=== PATIENT | female | born 1970 | race Caucasian/White ===

== ENCOUNTER 2018-03-20 17:31 | Emergency (ER) | payer OTHER ==
[~2018-03-20] VITALS: Ht 157.5 cm; Wt 101.2 kg
[2018-03-20 17:37] VITALS: BP_SYST 154
[2018-03-20] MEDS ORDERED: PROCHLORPERAZINE EDISYLATE 10 MG/2 ML VIAL IM ONE (18:15)
[2018-03-20] MEDS ORDERED: KETOROLAC TROMETHAMINE 60 MG/2 ML VIAL IM ONE (18:15)
[2018-03-20 18:19] LABS: BASOPHILS % (AUTO) 0.6 % (0.0-2.0); EOSINOPHILS # (AUTO) 0.2 K/uL (0.0-0.4); EOSINOPHILS % (AUTO) 2.4 % (0.0-4.0); HEMATOCRIT 35.6 % (36-48); HEMOGLOBIN 12.2 g/dL (12.0-16.0); LYMPHOCYTES # (AUTO) 1.9 K/uL (1.0-5.5); MEAN CORPUSCULAR HEMOGLOBIN 28 pg (27-31); MEAN CORPUSCULAR HGB CONC 34 % (32-36); MEAN CORPUSCULAR VOLUME 82 fL (79.0-98.0); MONOCYTES # (AUTO) 0.6 K/uL (0.0-1.0); NEUTROPHILS # (AUTO) 4.5 K/uL (1.8-7.7); PLATELET COUNT (AUTO) 238 K/uL (130-430); RED BLOOD CELL COUNT(AUTO) 4.37 MIL/uL (4.2-6.2); RED CELL DISTRIBUTION WIDTH 13.4 % (9.0-15.0); WHITE BLOOD COUNT (AUTO) 7.2 K/uL (4.8-10.8)
[2018-03-20 18:30] LABS: CALCIUM 8.9 mg/dL (8.4-11.0); CREATININE 0.9 mg/dL (0.55-1.30); POTASSIUM 3.7 mmol/L (3.5-5.1)
[2018-03-20] MEDS ORDERED: METF1000 PO (18:30)
[2018-03-20] MEDS ORDERED: LOSA50TA3 PO (18:30)
[2018-03-20] MEDS ORDERED: LOSA25TA3 PO (18:30)
[2018-03-20] MEDS ORDERED: ASPI-1155 PO (18:30)
[2018-03-20 18:34] LABS: PROTHROMBIN TIME 9.9 SECS (9.5-12.5)
[2018-03-20 18:37] LABS: ALBUMIN 3.6 g/dL (3.4-4.8); TOTAL BILIRUBIN 0.5 mg/dL (0.0-1.0)
[2018-03-20 18:59] LABS: CKMB RELATIVE INDEX 0.7 (0.0-2.9); CREATINE KINASE MB 3.1 ng/mL (0-3.6)
[2018-03-20 19:43] VITALS: BP_SYST 150
== END 2018-03-20 19:43 | disposition home or self-care (01) ==
LOC: SED 17:31
DX: G44.209 Tension-type headache, unspecified, not intractable (principal); R42 Dizziness and giddiness; E78.00 Pure hypercholesterolemia, unspecified; E11.9 Type 2 diabetes mellitus without complications; I10 Essential (primary) hypertension; Z98.61 Coronary angioplasty status; Z79.82 Long term (current) use of aspirin; Z79.899 Other long term (current) drug therapy
CPT/HCPCS: 36415; 70450-TC; 71045; 80053; 82550-TC; 82553-TC; 83880; 84484; 85025; 85610-TC; 85730-TC; 93005; 99285; J0780; J1885

== ENCOUNTER 2019-10-13 10:52 | Emergency (ER) | payer OTHER ==
[~2019-10-13] VITALS: Ht 160 cm; Wt 101.2 kg
[~2019-10-13 10:52] MED LIST: ASPI-1155 PO; LOSA25TA3 PO; LOSA50TA3 PO; METF1000 PO
[2019-10-13 11:09] VITALS: BP_SYST 151
[2019-10-13] MEDS ORDERED: GABA-531 PO (11:09)
[2019-10-13] MEDS ORDERED: CHOL500037 PO (11:09)
[2019-10-13] MEDS ORDERED: SITA25TA3 PO (11:09)
[2019-10-13] MEDS ORDERED: VALS160T2 PO (11:09)
[2019-10-13] MEDS ORDERED: HYDR25TA4 PO (11:09)
[2019-10-13] MEDS ORDERED: MELO15TA13 PO (11:09)
--- NOTE | 2019-10-13 11:10 | NUR ---
PATIENT TO ER #8 ([facility])
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
--- NOTE | 2019-10-13 11:20 | NUR ---
ER at bedside examining patient.
[2019-10-13] MEDS ORDERED: KETOROLAC TROMETHAMINE 30 MG VIAL IM ONE (11:30)
[2019-10-13] MEDS ORDERED: HYDROcodone/ACETAMIN 5-325 MG TAB (NORCO/ VICODIN) PO ONE (11:30)
--- NOTE | 2019-10-13 11:50 | NUR ---
Patient taken to radiology via wheelchair. Will follow up upon return.
--- NOTE | 2019-10-13 12:10 | NUR ---
Patient refusing sling and Mcdavid at this time. Patient given Toradol as ordered.
--- NOTE | 2019-10-13 12:35 | NUR ---
Patient personally requested neck CT from Dr. Marlin Lr. Orders entered by Dr. Lr
--- NOTE | 2019-10-13 13:10 | NUR ---
Patient given written and verbal discharge instructions and verbalizes understanding. ER MD discussed with patient the results and treatment provided. Patient in stable condition. ID arm band removed. Rx of [place] 5-325 given. Patient educated on pain management and to follow up with PMD. Pain Scale 3/10. Opportunity for questions provided and answered. Medication side effect fact sheet provided.
[2019-10-13 13:35] VITALS: BP_SYST 150
== END 2019-10-13 13:10 | disposition home or self-care (01) ==
LOC: SED 10:52
DX: S16.1XXA Strain of muscle, fascia and tendon at neck level, initial encounter (principal); S43.51XA Sprain of right acromioclavicular joint, initial encounter; S09.90XA Unspecified injury of head, initial encounter; E78.00 Pure hypercholesterolemia, unspecified; E11.9 Type 2 diabetes mellitus without complications; I10 Essential (primary) hypertension; Z79.82 Long term (current) use of aspirin; Z79.899 Other long term (current) drug therapy; W01.0XXA Fall on same level from slipping, tripping and stumbling without subsequent striking against object, initial encounter; Y93.89 Activity, other specified; Y92.098 Other place in other non-institutional residence as the place of occurrence of the external cause; Y99.8 Other external cause status
CPT/HCPCS: 70450; 72050; 72125; 73030; 73060; 96372; 99285; J1885

== ENCOUNTER 2021-06-25 21:46 | Emergency (ER) | payer OTHER, MEDICAID ==
[~2021-06-25] VITALS: Ht 160 cm; Wt 104.3 kg
[~2021-06-25 21:46] MED LIST changes: +CHOL500037 PO; +GABA-531 PO; +HYDR25TA4 PO; -LOSA25TA3 PO; -LOSA50TA3 PO; +MELO15TA13 PO; +SITA25TA3 PO; +VALS160T2 PO
[2021-06-25 22:18] VITALS: BP_SYST 160
--- NOTE | 2021-06-25 23:38 | NUR ---
Patient ambulatory to bed hallway for evaluation
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
--- NOTE | 2021-06-26 00:04 | NUR ---
ER Dr. Chung at bedside examining patient.
[2021-06-26] MEDS ORDERED: HYDROcodone/ACETAMIN 5-325 MG TAB (NORCO/ VICODIN) PO ONE (00:15)
[2021-06-26] MEDS ORDERED: ramipriL 5 MG CAPSULE PO ONE (00:15)
[2021-06-26 02:22] VITALS: BP_SYST 151
--- NOTE | 2021-06-26 02:22 | NUR ---
Patient given written and verbal discharge instructions and verbalizes understanding. ER MD discussed with patient the results and treatment provided. Patient in stable condition. ID arm band removed. Rx of flexeril, Ibuprofen and [place] given. Patient educated on pain management and to follow up with PMD. Pain Scale 2/10. Opportunity for questions provided and answered. Medication side effect fact sheet provided.
== END 2021-06-26 02:22 | disposition home or self-care (01) ==
LOC: SED 21:46
DX: S16.1XXA Strain of muscle, fascia and tendon at neck level, initial encounter (principal); S29.012A Strain of muscle and tendon of back wall of thorax, initial encounter; M25.512 Pain in left shoulder; I10 Essential (primary) hypertension; E11.9 Type 2 diabetes mellitus without complications; Z79.899 Other long term (current) drug therapy; V40.6XXA Car passenger injured in collision with pedestrian or animal in traffic accident, initial encounter; Y93.89 Activity, other specified; Y92.89 Other specified places as the place of occurrence of the external cause; Y99.8 Other external cause status
CPT/HCPCS: 72125-TC; 72128; 76376; 99284

== ENCOUNTER 2024-01-03 15:51 | Emergency (ER) | payer OTHER, MEDICAID ==
[~2024-01-03] VITALS: Ht 160 cm; Wt 99.8 kg
[2024-01-03 16:27] VITALS: BP_SYST 130; PULSE 85; RESP 18; TEMP 98.1; O2SAT 95
[2024-01-03 17:26] VITALS: BP_SYST 130; PULSE 85; RESP 18; TEMP 98.1; O2SAT 95
== END 2024-01-03 17:05 | disposition home or self-care (01) ==
LOC: SED 15:51
DX: R04.0 Epistaxis (principal); E11.9 Type 2 diabetes mellitus without complications; I10 Essential (primary) hypertension
CPT/HCPCS: 99281